=== PATIENT | male | born 1960 | race Caucasian/White ===

== ENCOUNTER 2024-08-20 12:54 | Outpatient (CLI) | payer BC | END 2024-08-20 12:55 | disposition home or self-care (01) | LOC: CSHULT 12:54 → EDSEX 13:30 | PROVIDERS: ATTEND Orthopaedic Surgery | DX: N52.9 Male erectile dysfunction, unspecified (principal); N50.89 Other specified disorders of the male genital organs; N50.3 Cyst of epididymis; N48.9 Disorder of penis, unspecified | CPT/HCPCS: 76870 ==